=== PATIENT | male | born 1970 | race Caucasian/White ===

== ENCOUNTER 2018-10-05 10:57 | Emergency (ER) | payer OTHER ==
[~2018-10-05] VITALS: Ht 175.3 cm; Wt 78.9 kg
[2018-10-05 11:06] VITALS: Ht 175.3 cm; Wt 78.9 kg
[2018-10-05 13:48] VITALS: BP 127/79
== END 2018-10-05 13:48 | disposition home or self-care (01) ==
LOC: ED 10:57
DX: S52.501A Unspecified fracture of the lower end of right radius, initial encounter for closed fracture (principal); S52.601A Unspecified fracture of lower end of right ulna, initial encounter for closed fracture; W01.0XXA Fall on same level from slipping, tripping and stumbling without subsequent striking against object, initial encounter; Y93.89 Activity, other specified; Y92.89 Other specified places as the place of occurrence of the external cause; Y99.8 Other external cause status
CPT/HCPCS: J2001; J2270; Q0092; Q0162